=== PATIENT | female | born 1990 | race Two or more races ===

== ENCOUNTER 2016-10-24 16:46 | Observation (INO) | payer OTHER ==
[~2016-10-24] VITALS: Ht 154.9 cm; Wt 76.2 kg
[2016-10-24] MEDS ORDERED: LACTATED RINGERS 1,000 ML IV SCH (18:15)
[2016-10-24] MEDS ORDERED: PREN-88 PO (18:30)
== END 2016-10-24 19:05 | disposition home or self-care (01) ==
LOC: L&D 16:46
PROVIDERS: ADMIT Obstetrics & Gynecology; ATTEND Obstetrics & Gynecology
DX: O26.892 Other specified pregnancy related conditions, second trimester (principal); O21.2 Late vomiting of pregnancy; R10.2 Pelvic and perineal pain; R10.9 Unspecified abdominal pain; Z3A.21 21 weeks gestation of pregnancy
CPT/HCPCS: 96360; 99281; G0378; J7120

== ENCOUNTER 2017-01-18 16:34 | Observation (INO) | payer MEDICAID ==
[~2017-01-18] VITALS: Ht 154.9 cm; Wt 76.2 kg
[~2017-01-18 16:34] MED LIST: PREN-88 PO
[2017-01-18] MEDS ORDERED: TERBUTALINE SULFATE 1MG/ML VIAL SUBCUT PRN (17:15)
[2017-01-18] MEDS ORDERED: ONDANSETRON HCL 4MG/2ML VIAL IV NR (17:30)
[2017-01-18] MEDS ORDERED: ACETAMINOPHEN 500MG TABLET PO NR (17:30)
[2017-01-18] MEDS ORDERED: SODIUM CHLORIDE 0.9% 1,000 ML IV SCH (17:30)
[2017-01-18 18:11] LABS: CLARITY URINE CLEAR (CLEAR); COLOR URINE YELLOW (YELLOW); KETONES URINE NEGATIVE (NEGATIVE); LEUKOCYTE ESTERASE URINE NEGATIVE (NEGATIVE); NITRITE URINE NEGATIVE (NEGATIVE); OCCULT BLOOD URINE NEGATIVE (NEGATIVE); PH URINE 7.5 (4.5-8.0); PROTEIN URINE NEGATIVE (NEGATIVE); SPECIFIC GRAVITY URINE 1.013 (1.005-1.030); UROBILINOGEN URINE 0.2 E.U./dL (0.2-1.0)
== END 2017-01-18 19:05 | disposition home or self-care (01) ==
LOC: L&D 16:34 → INTOOBSV 16:34 → L&D 18:19
PROVIDERS: ADMIT Specialist; ATTEND Specialist
DX: O36.8130 Decreased fetal movements, third trimester, not applicable or unspecified (principal); O26.893 Other specified pregnancy related conditions, third trimester; R10.9 Unspecified abdominal pain; R51 Headache; Z3A.33 33 weeks gestation of pregnancy
CPT/HCPCS: 81003; 82731; 96360; 96361; 96372; 99281; G0378; J2405; J3105; J7030; 96374